=== PATIENT | male | born 1985 | race Hispanic/Latino ===

== ENCOUNTER 2021-10-24 21:54 | Inpatient (IN) | payer SELFPAY ==
[2021-10-24] MEDS ORDERED: Ketorolac Tromethamine 30 MG/ML VIAL ONE (22:21)
[2021-10-24] MEDS ORDERED: CEFAZOLIN 1 GM VIAL ONE (22:21)
[2021-10-24] MEDS ORDERED: Morphine 4 MG/ML VIAL ONE (22:21)
[2021-10-24] MEDS ORDERED: Boostrix 0.5 ML (Tdap) VIAL ONE (22:21)
[2021-10-24 22:24] LABS: #Basophils 0.1 thou/uL (0.0-0.2); #Eosinphils 0.1 thou/uL (0.0-0.7); #Lymphocytes 4.4 thou/uL (1.20-3.40); #Monocytes 0.9 thou/uL (0.11-0.59); #Neutrophils 8.2 thou/uL (1.40-6.50); %Basophils 0.8 % (0.0-1.0); %Lymphocytes 31.8 % (21.0-51.0); %Monocytes 6.2 % (0.0-10.0); %Neutrophils 60.2 % (42.0-75.0); Hemoglobin 16.1 g/dL (14.0-18.0); Mean Corpuscular Hemoglobin 34.6 pg (27.0-31.0); Mean Platelet Volume 7.1 fL (7.4-10.4); Platelet Count 240 thou/uL (130-400); RBC Distribution Width 11.9 % (11.5-14.5); Red Blood Cell (RBC) Count 4.66 mill/uL (4.70-6.10); White Blood Cell (WBC) Count 13.7 thou/uL (4.8-10.8)
[2021-10-24 22:46] LABS: ALT (SGPT) 140 U/L (8-55); AST (SGOT) 97 U/L (5-34); Albumin 4.8 g/dL (3.5-5.0); Alkaline Phosphatase 69 U/L (40-110); Anion Gap 21 mmol/L (10-20); BUN (Urea Nitrogen) 8 mg/dL (8.9-20.6); Bilirubin, Total 0.6 mg/dL (0.2-1.2); Calc. Creatinine Clearance 0 mL/min (70-130); Calcium 8.7 mg/dL (7.8-10.44); Carbon Dioxide 19 mmol/L (22-29); Chloride 106 mmol/L (98-107); Globulin 3.4 g/dL (2.4-3.5); Glucose 140 mg/dL (70-105); Potassium 3.5 mmol/L (3.5-5.1); Protein, Total 8.2 g/dL (6.0-8.3); Sodium 142 mmol/L (136-145)
[2021-10-25] MEDS ORDERED: Morphine 2 MG/ML VIAL SLOW IVP PRN (00:21)
[2021-10-25] MEDS ORDERED: Ondansetron PF 4 MG/2 ML Vial IVP PRN (00:21)
[2021-10-25] MEDS ORDERED: hydrALAZINE 20 MG/ML VIAL SLOW IVP PRN (00:21)
[2021-10-25] MEDS ORDERED: Promethazine HCl 25 MG/ML VIAL IM PRN (00:21)
[2021-10-25] MEDS ORDERED: Sodium Chloride 0.9% 1,000 ML IV SCH (00:30)
[2021-10-25 00:43] LABS: Acetaminophen Less than 10.0 mcg/mL (10.0-30.0); Alcohol 227 mg/dL (Less than 10); Salicylate Less than 8.0 mg/dL (15.0-30.0)
[2021-10-25] MEDS ORDERED: Morphine 2 MG/ML VIAL ONE (01:26)
[2021-10-25 01:35] LABS: Amphetamine Not Detected (NotDetected); Barbiturates Screen Not Detected (NotDetected); Benzodiazepine Screen Not Detected (NotDetected); Cocaine Metabolite Screen Detected (NotDetected); Methadone Not Detected (NotDetected); Methamphetamine Detected (NotDetected); Opiate Screen Detected (NotDetected); Oxycodone Screen Not Detected (NotDetected); Phencyclidine (PCP) Not Detected (NotDetected); THC/Cannabinoid Screen Detected (NotDetected); Tricyclic Screen Not Detected (NotDetected)
[2021-10-25 01:43] LABS: Bilirubin Negative (Negative); Blood, Urine Negative (Negative); Clarity Turbid (Clear); Glucose, Urine (Dipstick) Normal (Negative); Ketone, Urine Trace mg/dL (Negative); Leukocyte Negative Leu/uL (Negative); Nitrite Negative (Negative); Protein, Urine (Dipstick) 30 mg/dL (Neg-Trace); RBC/HPF 0-3 HPF (0-3); Specific Gravity, Urine 1.022 (1.002-1.036); Squamous Epithelial 0-3 HPF (0-3); Urobilinogen Normal mg/dL (Less than 2); WBC/HPF 0-3 HPF (0-3)
[2021-10-25 01:55] LABS: Bacteria/HPF Rare-Few HPF (None Seen)
[2021-10-25 01:59] LABS: Urine Culture Reflex No No
[2021-10-25] MEDS ORDERED: ceFAZolin (BATCH) 2 GM in Premix Bag 1 BAG IVPB SCH (06:00)
[2021-10-25 06:36] LABS: #Basophils 0.1 thou/uL (0.0-0.2); #Eosinphils 0.1 thou/uL (0.0-0.7); #Lymphocytes 2.6 thou/uL (1.20-3.40); #Monocytes 1.2 thou/uL (0.11-0.59); #Neutrophils 6.9 thou/uL (1.40-6.50); %Basophils 0.6 % (0.0-1.0); %Eosinophils 0.5 % (0.0-10.0); %Lymphocytes 23.7 % (21.0-51.0); %Monocytes 10.9 % (0.0-10.0); %Neutrophils 64.3 % (42.0-75.0); Hemoglobin 13.8 g/dL (14.0-18.0); Mean Corpuscular HGB CONC 34.1 g/dL (32.0-36.0); Mean Corpuscular Hemoglobin 34.5 pg (27.0-31.0); Mean Platelet Volume 6.9 fL (7.4-10.4); Platelet Count 174 thou/uL (130-400); RBC Distribution Width 12.1 % (11.5-14.5); Red Blood Cell (RBC) Count 3.99 mill/uL (4.70-6.10); White Blood Cell (WBC) Count 10.8 thou/uL (4.8-10.8)
[2021-10-25 06:48] LABS: INR-International Normal Ratio 1.2; Prothrombin Time 14.9 sec (12.0-14.7)
[2021-10-25 06:49] LABS: PTT 31.7 sec (22.9-36.1)
[2021-10-25 06:50] LABS: Anion Gap 13 mmol/L (10-20); BUN (Urea Nitrogen) 7 mg/dL (8.9-20.6); Calc. Creatinine Clearance 0 mL/min (70-130); Calcium 7.9 mg/dL (7.8-10.44); Carbon Dioxide 22 mmol/L (22-29); Chloride 108 mmol/L (98-107); Glucose 103 mg/dL (70-105); Potassium 3.9 mmol/L (3.5-5.1); Sodium 139 mmol/L (136-145)
[2021-10-25] MEDS: Sodium Chloride 0.9% 1,000 ML IV SCH ×4 (08:15→21:37)
[2021-10-25] MEDS: Ibuprofen 600 MG TAB PO SCH ×3 (08:16→21:37)
[2021-10-25] MEDS: Acetaminophen 500 MG TAB PO SCH ×4 (09:25→18:21)
[2021-10-25] MEDS: Senokot S 8.6-50 MG TAB PO SCH ×2 (09:26→21:37)
[2021-10-25] MEDS: Famotidine 20 MG TAB PO SCH ×2 (09:26→21:37)
[2021-10-25] MEDS: Polyethylene Glycol 3350 17 GM Packet PO SCH (09:26)
[2021-10-25] MEDS: Saccharomyces boulardii 250 MG CAP PO SCH (09:26)
[2021-10-25 10:57] VITALS: BMI 32.1
[2021-10-25] MEDS: CEFAZOLIN 2 GM in Sodium Chloride 0.9% 100 ML IVPB SCH ×2 (14:58→21:37)
[2021-10-25] MEDS ORDERED: traMADol HCl 50 MG TAB PO PRN (17:26)
[2021-10-25] MEDS ORDERED: Cyclobenzaprine 10 MG TAB PO PRN (17:26)
[2021-10-25] MEDS: traMADol HCl 50 MG TAB PO SCH (18:21)
[2021-10-26] MEDS: traMADol HCl 50 MG TAB PO SCH ×4 (00:32→18:20)
[2021-10-26] MEDS: Acetaminophen 500 MG TAB PO SCH ×3 (00:33→11:08)
[2021-10-26] MEDS: Sodium Chloride 0.9% 1,000 ML IV SCH (04:14)
[2021-10-26] MEDS: Ibuprofen 600 MG TAB PO SCH ×2 (06:38→15:21)
[2021-10-26] MEDS: CEFAZOLIN 2 GM in Sodium Chloride 0.9% 100 ML IVPB SCH ×2 (06:39→15:21)
[2021-10-26] MEDS: Polyethylene Glycol 3350 17 GM Packet PO SCH (08:46)
[2021-10-26] MEDS: Saccharomyces boulardii 250 MG CAP PO SCH (08:46)
[2021-10-26] MEDS: Senokot S 8.6-50 MG TAB PO SCH (08:46)
[2021-10-26] MEDS: Famotidine 20 MG TAB PO SCH (08:46)
[2021-10-26] MEDS ORDERED: Morphine 2 MG/ML VIAL ONE (14:16)
[2021-10-26] MEDS ORDERED: Sodium Chloride 0.9% 100 ML ONE (14:16)
[2021-10-26] MEDS ORDERED: CEFAZOLIN 2 GM VIAL ONE (14:16)
[2021-10-26] MEDS ORDERED: Dexamethasone 20 MG/5 ML VIAL ONE (14:49)
[2021-10-26] MEDS ORDERED: Ondansetron PF 4 MG/2 ML Vial ONE (14:49)
[2021-10-26] MEDS ORDERED: PROPOFOL 200 MG/20 ML VIAL ONE (14:49)
[2021-10-26] MEDS ORDERED: Lidocaine 1% PF 5 ML VIAL ONE (14:49)
[2021-10-26] MEDS ORDERED: fentaNYL Citrate/PF 100 MCG/2 ML SYRINGE ONE (14:50)
[2021-10-26] MEDS ORDERED: HYDROmorphone 2 MG/ML VIAL ONE (15:24)
[2021-10-26] MEDS ORDERED: EPINEPHrine 1 MG/ML AMP ONE (15:39)
[2021-10-26] MEDS ORDERED: Bupivacaine 0.25% HCL 30 ML VIAL ONE (15:39)
[2021-10-26] MEDS ORDERED: Promethazine HCl 25 MG/ML VIAL IVPB PRN (16:06)
[2021-10-26] MEDS ORDERED: Ondansetron HCl/PF 4 MG/2 ML Vial IVP PRN (16:06)
[2021-10-26] MEDS ORDERED: Meperidine HCl/PF 25 MG/ML VIAL SLOW IVP PRN (16:06)
[2021-10-26] MEDS ORDERED: Promethazine HCl 25 MG/ML VIAL IM PRN (16:06)
[2021-10-26] MEDS ORDERED: HYDROcodone/Acetaminophen 10/325 mg Tablet PO PRN ×2 (16:06)
[2021-10-26] MEDS ORDERED: HYDROmorphone 2 MG/ML VIAL SLOW IVP PRN (16:06)
[2021-10-26] MEDS ORDERED: TETANUS AND DIPHTHERIA TOX/PF 0.5 ML DISP.SYRIN IM SCH (16:15)
[2021-10-26 16:59] VITALS: BP 150/88; TEMP 97.7
[2021-10-26] MEDS ORDERED: Aspirin 81 mg Enteric Coated Tablet PO SCH (21:00)
[2021-10-26] MEDS ORDERED: Sulfameth/Trimethoprim DS 800-160mg TAB PO SCH (21:00)
== END 2021-10-26 19:30 | disposition home or self-care (01) | DRG 493 ==
LOC: ERS 21:54 → ERHOLD 10-25 00:34 → SURG A 10-25 09:32
PROVIDERS: ADMIT Surgery; ATTEND Surgery
PROC: 0QSK04Z Reposition Left Fibula with Internal Fixation Device, Open Approach (ICD-10-PCS; principal; 2021-10-26)
DX: S82.62XA Displaced fracture of lateral malleolus of left fibula, initial encounter for closed fracture (principal); S02.91XA Unspecified fracture of skull, initial encounter for closed fracture; S02.2XXA Fracture of nasal bones, initial encounter for closed fracture; Z20.822 Contact with and (suspected) exposure to COVID-19; Y04.8XXA Assault by other bodily force, initial encounter; F10.129 Alcohol abuse with intoxication, unspecified; Y90.7 Blood alcohol level of 200-239 mg/100 ml
CPT/HCPCS: 36415; 36430; 70450; 70486; 76000; 80048; 80053; 80306; 80307; 81001; 84484; 85025; 85610; 85730; 86850; 86900; 86901; 90715; C1713; J0171; J0690; J1100; J1170; J1885; J2270; J2405; J2704; J3490; J7050; P9016; S0020; U0003; U0005